=== PATIENT | female | born 1950 | race Hispanic/Latino ===

== ENCOUNTER 2018-04-03 16:27 | Emergency (ER) | payer MEDICARE ==
[~2018-04-03] VITALS: Ht 152.4 cm; Wt 81.6 kg
[2018-04-03] MEDS ORDERED: TRAMADOL HCL 50 MG TAB PO ONE (21:30)
[2018-04-03] MEDS ORDERED: NIFEDIPINE 10 MG CAP PO STA (21:31)
== END 2018-04-03 22:58 | disposition home or self-care (01) ==
LOC: ER 16:27
DX: M54.5 Low back pain (principal); M54.6 Pain in thoracic spine; M25.562 Pain in left knee; M25.561 Pain in right knee; G89.29 Other chronic pain; I10 Essential (primary) hypertension; Z95.0 Presence of cardiac pacemaker
CPT/HCPCS: 99283